=== PATIENT | male | born 1965 | race African-American/Black ===

== ENCOUNTER 2017-06-02 06:24 | Inpatient (IN) ==
[2017-06-02] MEDS ORDERED: ACETAMINOPHEN 500 MG TABLET PO STA (07:40)
[2017-06-02] MEDS ORDERED: cefTRIAXone 1,000 MG in SODIUM CHLORIDE 0.9% 100 ML IV STA (07:40)
[2017-06-02] MEDS ORDERED: SODIUM CHLORIDE 0.9% 500 ML IV STA (07:40)
[2017-06-02] MEDS ORDERED: cefTRIAXone 1,000 MG VIAL ONE (07:56)
[2017-06-02] MEDS ORDERED: ACETAMINOPHEN 500 MG TABLET ONE (07:56)
[2017-06-02 08:31] LABS: Basophils % 0.2 % (0.0-0.8); Eosinophils % 0.2 % (0.00-10.9); Hematocrit 41.2 VOL% (42.0-52.0); Hemoglobin 13.7 GM/DL (14.0-18.0); Immature Granulocytes % 0.5 %; Immature Granulocytes Absolute 0.06 #; Lymphocytes # 0.9 10*3/uL (1.4-4.0); Lymphocytes % 7.8 % (21.2-54.2); Mean Corpuscular HGB Conc 33.3 GM/DL (32-36); Mean Corpuscular Hemoglobin 29 PG (27-34); Mean Corpuscular Volume 87.3 FL (87-102); Monocytes # 0.1 10*3/uL (0.11-0.8); Monocytes % 0.5 % (1.7-12.7); Neutrophils # 10.7 10*3/uL (1.4-7.4); Neutrophils % 90.8 % (38.7-73.9); Platelet Count 145 T/CUMM (130-400); Red Blood Count 4.72 MC/CUMM (3.8-5.5); Red Cell Distribution Width 14.1 % (9.3-17.3); White Blood Count 11.7 T/CUMM (4-12)
--- NOTE | 2017-06-02 08:35 | Emergency Department Note ---
INiranjan Emily, am scribing for, and in the presence of, William Li MD 07: 46. IJen Charles R, MD, personally performed the services described in this documentation, ascribed by Sherrill Ureña in my presence, and it is both accurate and complete [id number] . Arrival - Arrival Chief Complaint: Fever Stated Complaint: fever and high blood pressure ED Nursing Triage Note: PT C/O WAKING AT 0100 THIS AM WITH FEVER, CHILLS, HEADACHE, AND PAIN TO LEFT LEG. PT TOOK 325MG ASA WHILE IN WAITING ROOM Mode of Arrival: Ambulatory Limitations: No Limitations Source: Patient Time Seen by Provider: 06/02/17 07:19 - History of Present Illness HPI Narrative: Pt is a 52 y/o male who came to ED with c/o fever that onset this morning. Pt reports having N/V with shaking chills, and body aches that has been ongoing for 4-5 days now. Pt reports having sore throat about 5 days ago but that has subsided. 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 PMHx of Afib with aspirin daily under supervision of Dr. Mc. Pt states he has not seen him in a year. Pt denies taking Tylenol or motrin. He admits to taking robitussin at 1am and aspirin at 5am. Pt is actively shaking in ED with fever of 102.5. Onset (ago): hour(s) Consistency: constant Severity: moderate Severity scale (1-10): 5 Quality: aching Allergies/Adverse Reactions: Allergies Allergy/AdvReac Type Severity Reaction Status Date / Time No Known Allergies Allergy Verified 06/02/17 07:10 Home Medications: Home Medications Medication Instructions Recorded Confirmed Type Atorvastatin [Lipitor] 40 mg PO BEDTIME 03/01/15 06/23/16 History Pantoprazole Tab [Protonix Tab] 40 mg PO DAILY 03/01/15 06/23/16 History Aspirin [Ecotrin] 81 mg PO DAILY 03/02/15 06/23/16 History Tamsulosin [Flomax] 0.4 mg PO BID 04/05/15 06/23/16 History Lisinopril/Hydrochlorothiazide 1 each PO DAILY 06/23/16 06/23/16 History [Lisinopril-Hctz 10-12.5 mg Tab] Naproxen [Naprosyn Tab] 500 mg PO BID #60 tablet 06/23/16 Rx predniSONE TAB [PredniSONE] 20 mg PO DAILY #15 tablet 06/23/16 Rx Review of System - Review of System 12 point system: reviewed and no additional remarkable complaints except as stated - Review of System Constitutional: Present: chills, fever, weakness (body aches), other (shaking) Head/Ears/Nose/Throat: Present: sore throat Respiratory: Absent: cough, respiratory distress Cardiovascular: Absent: chest pain Gastrointestinal: Present: nausea, vomiting. Absent: abdominal pain Musculoskeletal: Absent: arm pain, neck pain Skin: Absent: rash Neurological: Absent: headache Medical,Surgical,& Family Hx - Medical History Cardio: History of: Cardiac Dysrhythmia (afib), Hypertension Endocrine: History of: Dyslipidemia Genitourinary: History of: Prostate Problems Gastrointestinal: History of: GERD Musculoskeletal: History of: Back/Neck Problems (PT SEES DR. ISAAC FOR PAIN) - Surgical History Cardiac Surgeries: Sugical HX of: Cardiac Catheterization (2011) Abdominal Surgeries: Surgical HX of: Colonoscopy, EGD - Family History Family History: Reports;: Family Cancer, Family Diabetes, Family Hypertension Denies;: Family Heart Disease, Family Stroke - Social History Smoking Status: Never smoker Frequency of Alcohol Use: None Type of Drug Use: None Marital Status: Single Lives With:: Children Functional capacity: independent ambulation Exam Vital Signs: Vital Signs Temperature 102.1 F H 06/02/17 08:03 Pulse Rate 105 H 06/02/17 07:16 Respiratory Rate 18 06/02/17 07:16 Blood Pressure 140/82 06/02/17 07:16 O2 Sat by Pulse Oximetry 97 06/02/17 07:08 - General General appearance: alert, in no apparent distress - Head Head exam: Present: atraumatic, normocephalic - Eye Eye exam: Present: PERRL, EOMI - ENT ENT exam: Present: mucous membranes moist. Absent: normal oropharynx ( erythematous), mucous membranes dry - Neck Neck exam: Present: full ROM - Chest Chest inspection: Present: symmetric chest wall rise - Respiratory Respiratory exam: Present: normal lung sounds bilaterally. Absent: respiratory distress - Cardiovascular Cardiovascular exam: Present: tachycardia, irregular rhythm - Abdominal Exam Abdominal exam: Present: soft, normal bowel sounds. Absent: tenderness - Extremities Exam Extremities exam: Present: full ROM. Absent: tenderness, pedal edema - Neurological Exam Neurological exam: Present: alert, oriented X3, CN II-XII intact, other (shaking ). Absent: motor sensory deficit - Psychiatric Psychiatric exam: Present: normal affect, normal mood - Skin Skin exam: Present: warm, dry Course - Consultations Consultation #1: Hospitalist will admit patient Time: 10:25 Results - Labs CBC & BMP: 06/02/17 07:52 06/02/17 07:52 Lab Results: I have reviewed the patients labs Labs: Laboratory Tests 06/02/17 07:52 WBC 11.7 RBC 4.72 Hgb 13.7 L Hct 41.2 L Plt Count 145 Neut % (Auto) 90.8 H Lymph % (Auto) 7.8 L Preston % (Auto) 0.5 L Neut # (Auto) 10.7 H Lymph # (Auto) 0.9 L Preston # (Auto) 0.1 L Laboratory Tests 06/02/17 07:52 Total Bilirubin 1.40 H Lactate Dehydrogenase 273 H C-Reactive Protein 2.46 H Amylase 72 Lipase 201.0 Microbiology 06/02/17 07:40 Nasal Aspirate Influenza Types A,B Antigen (VIVIAN) - Final Negative for Influenza A Ag Negative for Influenza B Ag Microbiology 06/02/17 07:40 Throat Group A Streptococcus Rapid Screen - Final Negative for Grp A Strep Ag 06/02/17 07:40 Nasal Aspirate Influenza Types A,B Antigen (VIVIAN) - Final Negative for Influenza A Ag Negative for Influenza B Ag Laboratory Tests 06/02/17 09:11 Urine Color Yellow Urine Appearance Slightly hazy Urine pH 7.0 Ur Specific [place] 1.019 Urine Blood Small Urine Nitrate Negative Urine Bilirubin Negative Urine Urobilinogen 2.0 H Urine Leukocytes Moderate H Urine RBC 11 Urine WBC 66 Laboratory Tests 06/02/17 07:52 ESR Westergren 16 Laboratory Tests 06/02/17 07:52 ESR Westergren 16 - Diagnostic Findings Procedure: Chest x-ray: report reviewed by me (No acute cardiopulmonary pathology identified.) Disposition Clinical Impression: Fever, Rigors, UTI (urinary tract infection) Case discussed with: patient, patient's family Disposition: Still a Patient Condition: Stable Time of Disposition: 10:26
[2017-06-02 08:36] LABS: Bilirubin,Total 1.4 MG/DL (0.2-1.0); Calcium 8.9 MG/DL (8.5-10.1); Osmolality,Calculated 274.7 MOS/KG (273-304); Potassium 4.2 MMOL/L (3.5-5.1)
[2017-06-02 08:37] LABS: Lactic Acid 1.7 MMOL/L (0.4-2.0)
--- NOTE | 2017-06-02 08:57 | XRay Report ---
XR chest 2V Date: 06/02/2017 7:41 AM History: Shortness of breath, fever Comparison: 06/23/2016 Technique: PA and lateral chest Findings: The heart is smaller in size. The lungs and mediastinum are stable in appearance. Degenerative changes are noted. Impression: No acute cardiopulmonary pathology identified. PROCEDURE INTERPRETED AT [facility] DEPARTMENT OF RADIOLOGY Final Report Signed by: Dr. Earline Veras
[2017-06-02 09:25] LABS: Apearance,Urine Slightly Hazy (Clear); Bilirubin,Urine Negative (Negative); Blood, Urine Small mg/dL (Negative); Glucose,Urine (UA) Negative (Negative); Ketones,Urine Negative (Negative); Nitrite,Urine Negative (Negative); Protein,Urine Negative; RBC,Urine 11 /HPF (0-4); Urine Color Yellow (Yellow); Urine Specific Gravity 1.019 (1.001-1.035); WBC,Urine 66 /HPF (0-6)
[2017-06-02 09:46] LABS: Sedimentation Rate-Westergren 16 MM/HR (0-20)
[2017-06-02] MEDS ORDERED: IBUPROFEN 800 MG TABLET PO STA (10:30)
[2017-06-02] MEDS ORDERED: IBUPROFEN 800 MG TABLET ONE (10:31)
[2017-06-02 10:33] LABS: Band Neutrophils 10 % (0-10); Lymphocytes 10 % (20-55); Segmented Neutrophils 79 % (50-85); Total Cells Counted 100
[2017-06-02 10:34] LABS: Poikilocytosis 1+
--- NOTE | 2017-06-02 11:27 | Order Completion Report ---
See report scanned to EMR
--- NOTE | 2017-06-02 11:37 | Hospitalist History & Physical ---
Assessment and Plan - Time spent with patient Time spent with patient: Greater than 30 minutes (1) Fever Status: Acute Assessment and plan: Admit 06/02/17 Fever (102/103), Creatinine 1.30, decreased fluid intake -Start IV fluids - hydration, PRN tylenol, PRN pain management UTI: Continue Rocephin Flank Pain: Order KUB Prostate Problems: Chronic: continue Flomax HTN: continue Lisinopril-Hctz Dyslipidemia -continue lipitor Flu - negative Strep - Negative Urine Culture - pending results Blood culture - pending results Further recommendations with Care to follow per Dr Leonard. Current Visit: Yes (2) UTI (urinary tract infection) Status: Acute Current Visit: Yes History of Present Illness Chief complaint: fever History of present illness: Mr. Levi is a 52 year old black male w/PMHx Afib, HTN, dyslipidemia, Prostate Problems, GERD, Chronic back/neck problems presented to the ED for fever of 102 started around 1 a.m. He reports feeling "bad" for a couple of days and associated bilateral flank pain x 2 days. Noted urine is dark yellow. Reports nausea, fever, chills, body aches x1-2 days and a sore throat 5 days ago. He denies chest pain, cough, dysuria, hematuria. IN ED: CXR: nothing acute. LABS: H&H stable, WBC normal. Electrolytes WNL. total Bilirubin 1.40. LACtate Dehydrogenase 273. CRP 2.46. Urinalysis positive for UTI. STREP negative. Influenza A&B negative. VS: Temp 102-103. BP 140/82. RR 18. HR 105. Hospital medicine consulted for admission. Blood and urine cultures obtained in the ED. Rocephin initiated in ED. Start IV fluids, order KUB, continue Rocephin. SURGhx: hernia repair, left ankle fx repair, right thumb repair, back surgeries , heart catherization 2011, colonoscopy, EGD. Denies smoking, alcohol use, or drug use. 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 Home medications will be reviewed and reconciliation to follow. Home Medications Medication Instructions Recorded Confirmed Type Atorvastatin [Lipitor] 40 mg PO BEDTIME 03/01/15 06/23/16 History Pantoprazole Tab [Protonix Tab] 40 mg PO DAILY 03/01/15 06/23/16 History Aspirin [Ecotrin] 81 mg PO DAILY 03/02/15 06/23/16 History Tamsulosin [Flomax] 0.4 mg PO BID 04/05/15 06/23/16 History Lisinopril/Hydrochlorothiazide 1 each PO DAILY 06/23/16 06/23/16 History [Lisinopril-Hctz 10-12.5 mg Tab] Naproxen [Naprosyn Tab] 500 mg PO BID #60 tablet 06/23/16 Rx predniSONE TAB [PredniSONE] 20 mg PO DAILY #15 tablet 06/23/16 Rx Allergies Allergy/AdvReac Type Severity Reaction Status Date / Time No Known Allergies Allergy Verified 06/02/17 07:10 Medical,Surgical,& Family Hx - Medical History Cardio: History of: Cardiac Dysrhythmia (afib), Hypertension Endocrine: History of: Dyslipidemia Genitourinary: History of: Prostate Problems Gastrointestinal: History of: GERD Musculoskeletal: History of: Back/Neck Problems (PT SEES DR. ISAAC FOR PAIN) - Surgical History Cardiac Surgeries: Sugical HX of: Cardiac Catheterization (2011) Abdominal Surgeries: Surgical HX of: Colonoscopy, EGD - Family History Family History: Reports;: Family Cancer, Family Diabetes, Family Hypertension Denies;: Family Heart Disease, Family Stroke - Social History Smoking Status: Never smoker Frequency of Alcohol Use: None Type of Drug Use: None Marital Status: Lives With:: Spouse Functional capacity: independent ambulation 12 point system: reviewed and no additional remarkable complaints except as stated - Constitutional Constitutional: Present: chills, fever(s). Absent: frequent falls - EENT Nose, mouth and throat: Present: sore throat (about 5 days ago, resolved today) - Cardiovascular Cardiovascular: Absent: chest pain at rest, chest pain with activity, dyspnea, dyspnea on exertion, edema - Respiratory Respiratory: Absent: cough - Gastrointestinal Gastrointestinal: Present: nausea, vomiting. Absent: abdominal pain - Genitourinary Genitourinary: Present: flank pain (bilateral flank pain). Absent: dysuria, hematuria Exam - Constitutional Vitals: Period Temp Pulse Resp BP Sys/Jenkins Pulse Ox Last 24 Hr 102.1 F-103.0 F 105-105 18-18 140-140/82-82 97 General appearance: no acute distress, over weight - Head Head exam: Present: normal inspection - Eye Eye exam: Present: EOMI Pupils: Present: ADALBERTO - Neck Neck exam: Present: normal inspection. Absent: thyromegaly - Respiratory Respiratory exam: Present: clear to auscultation bilaterally. Absent: rales, rhonchi, stridor, wheezes - Cardiovascular Cardiovascular exam: Present: regular rate and rhythm - GI/Abdominal GI/Abdominal exam: Present: normal bowel sounds, soft. Absent: tenderness, rebound - Extremities Exam Extremities exam: Present: normal inspection, full ROM. Absent: edema - Neurological Exam Neurological exam: Present: alert, oriented X3, CN II-XII intact - Psychiatric Psychiatric exam: Present: normal affect, normal mood. Absent: agitated, anxious - Skin Skin exam: Present: normal color, warm, dry Results - Labs CBC & BMP: 06/02/17 07:52 06/02/17 07:52 Lab Results: I have reviewed the past 24 hour labs - Diagnostic Findings Procedure: Chest x-ray: report reviewed by me (nothing acute)
[2017-06-02] MEDS ORDERED: ONDANSETRON 4 MG/2 ML VIAL IV PRN (11:45)
[2017-06-02] MEDS ORDERED: cefTRIAXone 1,000 MG in SODIUM CHLORIDE 0.9% 100 ML IV SCH (12:00)
[2017-06-02] MEDS ORDERED: INFLUENZA VIRUS VACCINE 0.5 ML SYRINGE IM ONE (12:30)
[2017-06-02] MEDS: SODIUM CHLORIDE 0.9% 1,000 ML IV SCH ×3 (12:43→20:47)
[2017-06-02] MEDS: ASPIRIN EC 325 MG TABLET PO SCH (14:09)
[2017-06-02] MEDS: CETIRIZINE 10 MG TABLET PO SCH (14:09)
[2017-06-02] MEDS: MULTIVITAMIN (CENTRUM) TABLET PO SCH (14:09)
[2017-06-02] MEDS: PANTOPRAZOLE 40 MG TABLET PO SCH (14:10)
--- NOTE | 2017-06-02 14:37 | XRay Report ---
History is bilateral flank pain Mild air scattered in the bowel without small bowel dilatation or organomegaly seen Ovoid density left upper abdomen likely ingested pill fragment to this lies outside the renal shadow Multiple pelvic phleboliths again seen Scoliosis and degenerative changes in the lumbar spine present Impression: Nonspecific bowel gas pattern PROCEDURE INTERPRETED AT [facility] DEPARTMENT OF RADIOLOGY Final Report Signed by: Dr. Diana Huizar
--- NOTE | 2017-06-02 14:56 | CT Report ---
History is fever and flank pain Comparison 07/05/2012 There are several gallstones present. At least 8.5 cm mildly hyperdense liver mass again seen is showing enhancement pattern consistent with hemangioma. No renal calcifications or collecting system dilatation seen No enlarged retroperitoneal nodes seen. Bowel is unopacified Pelvis: There are diverticuli in the sigmoid and left colon. No free fluid or focal inflammatory changes seen. There is a moderate to severe lobular prostate enlargement degenerative change and scoliosis with straightening the curvature in the lumbar spine noted. Impression: 1. A large liver mass again seen previously shown to be hemangioma 2. Cholelithiasis 3. Diverticulosis 4. moderate to severe prostate enlargement The CT exam was performed using one or more of the following dose reduction techniques: Automated exposure control, adjustment of the mA and/or kV according to patient size, or use of iterative reconstruction technique. PROCEDURE INTERPRETED AT [facility] DEPARTMENT OF RADIOLOGY Final Report Signed by: Dr. Diana Huizar
[2017-06-02] MEDS: ATORVASTATIN 40 MG TABLET PO SCH (20:44)
[2017-06-02] MEDS: DOCUSATE SODIUM 100 MG CAPSULE PO SCH (20:44)
[2017-06-03] MEDS: SODIUM CHLORIDE 0.9% 1,000 ML IV SCH ×3 (03:46→20:40)
[2017-06-03 06:56] LABS: Basophils # 0.1 10*3/uL (0.0-0.2); Basophils % 0.2 % (0.0-0.8); Hematocrit 38.3 VOL% (42.0-52.0); Immature Granulocytes % 2.7 %; Lymphocytes # 1.3 10*3/uL (1.4-4.0); Lymphocytes % 5.8 % (21.2-54.2); Mean Corpuscular HGB Conc 33.9 GM/DL (32-36); Mean Corpuscular Hemoglobin 30 PG (27-34); Mean Corpuscular Volume 87.2 FL (87-102); Mean Platelet Volume 12.4 FL (9.6-12.0); Monocytes % 4.3 % (1.7-12.7); Neutrophils # 19.6 10*3/uL (1.4-7.4); Platelet Count 128 T/CUMM (130-400); Red Blood Count 4.39 MC/CUMM (3.8-5.5); Red Cell Distribution Width 14.4 % (9.3-17.3); White Blood Count 22.5 T/CUMM (4-12)
--- NOTE | 2017-06-03 07:12 | Urology Consultation ---
Assessment and Plan - Time spent with patient Time spent with patient: Less than 30 minutes (1) UTI (urinary tract infection) Status: Acute Assessment and plan: Agree with IV antibiotics. Consider adding gentamicin for broad-spectrum coverage as he has had a history of UTIs in the past. Maintain Hu catheter currently. Insure catheter draining well as it was kinked this morning. Current Visit: Yes Qualifiers: Urinary tract infection type: acute cystitis Hematuria presence: without hematuria Qualified Code(s): N30.00 - Acute cystitis without hematuria (2) Enlarged prostate with urinary retention Status: Acute Assessment and plan: Increase Flomax 0.4 mg twice daily Add finasteride 5 mg daily next number I discussed with him that after clinical improvement in UTI he may need intermittent catheterization. He follows with Dr. Chuck Johnson at [place] [facility]. He may need an outlet procedure, but I will defer this to Dr. Johnson. Dr. Johnson thinks he needs open simple and does not want to do this, I am happy to help do this for the patient. I reviewed his CT scan no evidence of prostatic abscess is noted. He does have a diffusely enlarged prostate with evidence at least [address] Current Visit: Yes (3) Atrial fib/flutter, transient Status: Acute Assessment and plan: History of transient atrial fibrillation on aspirin daily. He will need to be off this for any prostate surgery. It is safe to continue currently as will not operate on him acutely an infected situation. Current Visit: Yes History of Present Illness - Data of Consult Patient: new to practice Consult date: 06/03/17 - Consult Narrative History of present illness: Mr. Levi is a 52 year old male admitted with a febrile UTI. He was found to be in urinary retention with a PVR of greater than 600. He has a Hu catheter is been draining well overnight. He reports that he was having some difficulty voiding and had been on Flomax 0.4 mg nightly. He was admitted, and was able to void at all. A Hu cath was placed after him trying to void and had greater than 650 cc. He denies gross hematuria. He had a similar episode about a year ago. He has been treated for prostatitis by his urologist Dr. Chuck Johnson. He reports this had been several months ago. He denies fevers or chills currently. He has been afebrile overnight. Denies nausea vomiting. He has been having some small stools. He reports 6 stools in the last 24 hours. He reports history of hesitancy, straining with urination, and incomplete emptying. Positive for nocturia. CC: Maritza Leonard MD Urinary retention with Febrile UTI - Home Medications and Allergies Home Medications: Home Medications Medication Instructions Recorded Confirmed Type Atorvastatin [Lipitor] 40 mg PO BEDTIME 03/01/15 06/02/17 History Pantoprazole Tab [Protonix Tab] 40 mg PO DAILY 03/01/15 06/02/17 History Aspirin [Ecotrin] 325 mg PO DAILY 03/02/15 06/02/17 History Tamsulosin [Flomax] 0.4 mg PO DAILY 04/05/15 06/02/17 History Lisinopril/Hydrochlorothiazide 1 each PO DAILY 06/23/16 06/02/17 History [Lisinopril-Hctz 10-12.5 mg Tab] Cetirizine Tab [ZyrTEC Tab] 10 mg PO DAILY 06/02/17 06/02/17 History Hydrocodone/Acetaminophen [Weikert 1 each PO Q4H PRN 06/02/17 06/02/17 History 10-325 Tablet] Multivitamin (Centrum) [Centrum 1 tablet PO DAILY 06/02/17 06/02/17 History Tab] Allergies/Adverse Reactions: Allergies Allergy/AdvReac Type Severity Reaction Status Date / Time No Known Allergies Allergy Verified 06/02/17 07:10 Medical,Surgical,& Family Hx - Medical History Cardio: History of: Cardiac Dysrhythmia (afib), Hypertension Neurology: History of: Migraine, Vertigo Endocrine: History of: Dyslipidemia Rheumatology: History of;: Rheumatoid Arthritis Genitourinary: History of: Prostate Problems Gastrointestinal: History of: GERD Musculoskeletal: History of: Back/Neck Problems (PT SEES DR. ISAAC FOR PAIN) - Surgical History Cardiac Surgeries: Sugical HX of: Cardiac Catheterization (2011) Abdominal Surgeries: Surgical HX of: Colonoscopy (2006), EGD (2006) - Family History Family History: Reports;: Family Cancer, Family Diabetes, Family Hypertension Denies;: Family Heart Disease, Family Stroke - Social History Smoking Status: Never smoker Frequency of Alcohol Use: None Type of Drug Use: None 12 point system: reviewed and no additional remarkable complaints except as stated - Genitourinary Genitourinary: Present: difficulty urinating, nocturia. Absent: flank pain, hematuria, scrotal swelling, testicular mass, testicular pain Exam - Constitutional Vitals: Period Temp Pulse Resp BP Sys/Jenkins Pulse Ox Last 24 Hr 97.4 F-103.0 F 84-105 18-20 96-140/58-82 94-98 General appearance: no acute distress - Head Head exam: Present: normocephalic - Eye Eye exam: Absent: scleral icterus - ENT ENT exam: Present: normal oropharynx - Neck Neck exam: Present: normal inspection - Respiratory Respiratory exam: Present: clear to auscultation bilaterally. Absent: stridor, wheezes - Cardiovascular Cardiovascular exam: Present: regular rate and rhythm. Absent: JVD - GI/Abdominal GI/Abdominal exam: Present: distended. Absent: tenderness, rebound - Genitourinary Genitourinary: scrotum without lesions, cysts, edema or rash, penis with no lesions or discharge, diffusely enlarged prostate without tenderness (Greater than 60 g prostate clinically on exam), other (Hu catheter kinked cath secure. I released this and immediate drainage of urine with his abdomen decreased in distention.) - Extremities Exam Extremities exam: Present: normal inspection, normal capillary refill - Back Exam Back exam: Absent: CVA tenderness (L), CVA tenderness (R) - Neurological Exam Neurological exam: Present: alert, oriented X3 - Psychiatric Psychiatric exam: Present: normal affect, normal mood - Skin Skin exam: Present: warm, dry Results - Labs CBC & BMP: 06/03/17 05:45 06/02/17 07:52 Lab Results: I have reviewed the past 24 hour labs - Diagnostic Findings Procedure: CT Abdomen and Pelvis: image reviewed by me Specialty Discharge - Follow Up or Referrals Follow up with: Chuck Johnson MD [Physician] - 1 Week (within 1 week after discharge)
[2017-06-03 07:27] LABS: Acanthocytes Few; Band Neutrophils 9 % (0-10); Burr Cells Slight; Hypochromasia 1+; Lymphocytes 5 % (20-55); Segmented Neutrophils 84 % (50-85); Total Cells Counted 100
[2017-06-03 07:28] LABS: Platelet Estimate Adequate
[2017-06-03 07:43] LABS: Calcium 8.5 MG/DL (8.5-10.1); Magnesium 1.9 MG/DL (1.8-2.4); Osmolality,Calculated 282.3 MOS/KG (273-304); Potassium 3.9 MMOL/L (3.5-5.1)
[2017-06-03] MEDS: MULTIVITAMIN (CENTRUM) TABLET PO SCH (09:24)
[2017-06-03] MEDS: PANTOPRAZOLE 40 MG TABLET PO SCH (09:24)
[2017-06-03] MEDS: TAMSULOSIN 0.4 MG CAPSULE PO SCH (09:24)
[2017-06-03] MEDS: ASPIRIN EC 325 MG TABLET PO SCH (09:24)
[2017-06-03] MEDS: DOCUSATE SODIUM 100 MG CAPSULE PO SCH ×2 (09:24→20:40)
[2017-06-03] MEDS: CETIRIZINE 10 MG TABLET PO SCH (09:25)
[2017-06-03] MEDS: GENTAMICIN INJ 200 MG in SODIUM CHLORIDE 0.9% 100 ML IV SCH ×2 (12:53→20:40)
--- NOTE | 2017-06-03 13:28 | Hospitalist Progress Note ---
Assessment and Plan (1) Pyelonephritis Status: Acute Assessment and plan: Continue IV antibiotics Current Visit: Yes (2) Gram-negative bacteremia Status: Acute Current Visit: Yes (3) UTI (urinary tract infection) Status: Acute Current Visit: Yes Qualifiers: Urinary tract infection type: acute pyelonephritis Qualified Code(s): N10 - Acute pyelonephritis (4) Enlarged prostate with urinary retention Status: Acute Assessment and plan: Urology consult reviewed. Continue Hu catheter. Current Visit: Yes Hospitalist: Subjective Interval history: Patient seen and examined. No acute events overnight. Case discussed with nursing staff. Labs reviewed. Blood cultures show bacteremia with gram- negative rods 2 out of 2. We will add gentamicin. Urology consult reviewed. Exam - Constitutional Vitals: Period Temp Pulse Resp BP Sys/Jenkins Pulse Ox Last 24 Hr 97.4 F-99.0 F 84-101 18-22 102-140/56-78 94-96 Exam: Constitutional System: No distress. No tremulousness. Head: Normocephalic, atraumatic. Ears, Nose and Throat System: No pain or tenderness. No epistaxis or discharge Eyes System: Pupils equal, round, and reactive. Extraocular muscles intact. Neck: Supple, without adenopathy, No jugular venous distention. No thyromegaly, neck mass, or prior surgery apparent. Respiratory System: Chest clear to auscultation. Cardiovascular System: Heart with regular rate and rhythm. No murmur. GI System: Abdomen soft, nontender. Normo active bowel sounds present. Musculoskeletal System: limbs with no pedal edema. Full distal pulses. Normal capillary refill. Neurological System: No discernable sensory deficit. No aphasia Psychiatric System: Conversation is rational Results - Labs CBC & BMP: 06/03/17 05:45 06/03/17 05:45 Lab Results: I have reviewed the past 24 hour labs - Diagnostic Findings Procedure: CT Abdomen and Pelvis: image reviewed by me, report reviewed by me Quality Measures - Stroke Symptom Onset Unknown: No Specialty Discharge - Follow Up or Referrals Follow up with: Chuck Johnson MD [Physician] - 1 Week (within 1 week after discharge)
[2017-06-03] MEDS: ACETAMINOPHEN 325 MG TABLET PO PRN (16:01)
[2017-06-03] MEDS: IBUPROFEN 600 MG TABLET PO PRN (17:24)
[2017-06-03] MEDS: ZALEPLON 5 MG CAPSULE PO PRN (20:40)
[2017-06-03] MEDS: ATORVASTATIN 40 MG TABLET PO SCH (20:40)
[2017-06-04] MEDS: GENTAMICIN INJ 200 MG in SODIUM CHLORIDE 0.9% 100 ML IV SCH (04:28)
[2017-06-04] MEDS: SODIUM CHLORIDE 0.9% 1,000 ML IV SCH (05:42)
[2017-06-04 06:08] LABS: Basophils % 0.3 % (0.0-0.8); Eosinophils # 0.1 10*3/uL (0.0-0.87); Eosinophils % 0.7 % (0.00-10.9); Hematocrit 34.1 VOL% (42.0-52.0); Hemoglobin 11.5 GM/DL (14.0-18.0); Immature Granulocytes % 0.4 %; Immature Granulocytes Absolute 0.06 #; Lymphocytes # 2.4 10*3/uL (1.4-4.0); Lymphocytes % 17.1 % (21.2-54.2); Mean Corpuscular HGB Conc 33.7 GM/DL (32-36); Mean Corpuscular Hemoglobin 29 PG (27-34); Mean Platelet Volume 12.1 FL (9.6-12.0); Monocytes # 0.8 10*3/uL (0.11-0.8); Monocytes % 5.4 % (1.7-12.7); Neutrophils # 10.6 10*3/uL (1.4-7.4); Neutrophils % 76.1 % (38.7-73.9); Platelet Count 119 T/CUMM (130-400); Red Blood Count 3.92 MC/CUMM (3.8-5.5); Red Cell Distribution Width 14.6 % (9.3-17.3); White Blood Count 13.9 T/CUMM (4-12)
[2017-06-04 06:46] LABS: Albumin 2.6 G/DL (3.4-5.0); Bilirubin,Total 0.8 MG/DL (0.2-1.0); Calcium 8.3 MG/DL (8.5-10.1); Osmolality,Calculated 283.1 MOS/KG (273-304); Potassium 3.8 MMOL/L (3.5-5.1); Total Protein 5.3 G/DL (6.4-8.3)
--- NOTE | 2017-06-04 07:17 | Urology Progress Note ---
Assessment and Plan - Time spent with patient Time spent with patient: Less than 30 minutes (1) UTI (urinary tract infection) Status: Acute Assessment and plan: Agree with IV antibiotics (broad-spectrum coverage). Maintain Merida catheter currently. Insure catheter draining well--> would leave this in place. Can be discharged with merida and have voiding trial with his Urologist (given + Bl Cxs). He is going to need an extended course of abxs--> d/w pt that he would need to be clear of infection prior to Dr Johnson (or another Urologist) performing any time of outlet procedure. Current Visit: Yes Qualifiers: Urinary tract infection type: acute pyelonephritis Qualified Code(s): N10 - Acute pyelonephritis (2) Enlarged prostate with urinary retention Status: Acute Assessment and plan: Continue Flomax 0.4 mg twice daily and finasteride 5 mg daily. I discussed with him that after clinical improvement in UTI he may need intermittent catheterization. He follows with Dr. Chuck Johnson at [facility]. He may need an outlet procedure, but I will defer this to Dr. Johnson. His infection and bacteremia will have to be cleared completely. Would D/C home with merida and close f/u with his Urologist Current Visit: Yes (3) Atrial fib/flutter, transient Status: Acute Assessment and plan: History of transient atrial fibrillation on aspirin daily. He will need to be off this for any prostate surgery. It is safe to continue currently as will not operate on him acutely an infected situation. Current Visit: Yes Urology - PN: Subj Interval history: Feels some better. Some lower abd discomfort from merida. + flatus, + BM, less weakness. Bl Cxs x 2 + for gram neg rods Ur Cx- initially no growth, but likely the source of infection Exam - Constitutional Vitals: Period Temp Pulse Resp BP Sys/Jenkins Pulse Ox Last 24 Hr 97.7 F-100.3 F 71-92 18-22 108-140/56-78 94-97 General appearance: no acute distress - Head Head exam: Present: normal inspection, normocephalic - Eye Eye exam: Present: EOMI - ENT ENT exam: Present: normal oropharynx - Neck Neck exam: Present: normal inspection. Absent: lymphadenopathy - Respiratory Respiratory exam: Present: clear to auscultation bilaterally. Absent: stridor - Cardiovascular Cardiovascular exam: Present: regular rate and rhythm. Absent: JVD - GI/Abdominal GI/Abdominal exam: Present: normal bowel sounds, soft. Absent: tenderness, rebound - Genitourinary Genitourinary: scrotum without lesions, cysts, edema or rash, penis with no lesions or discharge, other (merida in place with yellow urine, secured left thigh) - Extremities Exam Extremities exam: Present: normal capillary refill - Back Exam Back exam: Absent: CVA tenderness (L), CVA tenderness (R) - Neurological Exam Neurological exam: Present: oriented X3. Absent: alert - Psychiatric Psychiatric exam: Present: normal affect, normal mood - Skin Skin exam: Present: normal color, warm, dry Results - Labs CBC & BMP: 06/04/17 05:22 06/04/17 05:22 Lab Results: I have reviewed the past 24 hour labs Labs: Bl Cxs x 2 w/ gram Neg rods--> Speciation and sensitivities pending Ur Cx- no growth prelim- possible that he had abx prior to ur cx (false negative ) - Diagnostic Findings Procedure: CT Abdomen and Pelvis: image reviewed by me Specialty Discharge - Follow Up or Referrals Follow up with: Chuck Johnson MD [Physician] - 1 Week (within 1 week after discharge)
[2017-06-04] MEDS: TAMSULOSIN 0.4 MG CAPSULE PO SCH ×2 (09:43→21:21)
[2017-06-04] MEDS: DOCUSATE SODIUM 100 MG CAPSULE PO SCH ×2 (09:43→21:20)
[2017-06-04] MEDS: MULTIVITAMIN (CENTRUM) TABLET PO SCH (09:43)
[2017-06-04] MEDS: ASPIRIN EC 325 MG TABLET PO SCH (09:43)
[2017-06-04] MEDS: CETIRIZINE 10 MG TABLET PO SCH (09:45)
[2017-06-04] MEDS: PANTOPRAZOLE 40 MG TABLET PO SCH (09:46)
--- NOTE | 2017-06-04 10:30 | Hospitalist Progress Note ---
Assessment and Plan (1) Pyelonephritis Status: Acute Assessment and plan: Continue IV antibiotics Current Visit: Yes (2) Gram-negative bacteremia Status: Acute Assessment and plan: Follow-up final cultures. Continue Rocephin. The patient received 3 doses of gentamicin. Current Visit: Yes (3) UTI (urinary tract infection) Status: Acute Assessment and plan: Follow-up final cultures Current Visit: Yes Qualifiers: Urinary tract infection type: acute pyelonephritis Qualified Code(s): N10 - Acute pyelonephritis (4) Enlarged prostate with urinary retention Status: Acute Assessment and plan: Urology consult reviewed. Continue Hu catheter. Increased Flomax to 0.4 twice daily and added Proscar 5 mg daily. Current Visit: Yes Hospitalist: Subjective Interval history: Patient seen and examined. No acute events overnight. Case discussed with nursing staff. Labs reviewed. He reports feeling better. His white blood cell count is down. Urology notes reviewed. Will plan for discharge with Hu catheter once cultures are final. Exam - Constitutional Vitals: Period Temp Pulse Resp BP Sys/Jenkins Pulse Ox Last 24 Hr 97.7 F-100.3 F 70-92 18-22 108-134/65-85 94-97 Exam: Constitutional System: No distress. No tremulousness. Head: Normocephalic, atraumatic. Ears, Nose and Throat System: No pain or tenderness. No epistaxis or discharge Eyes System: Pupils equal, round, and reactive. Extraocular muscles intact. Neck: Supple, without adenopathy, No jugular venous distention. Respiratory System: Chest clear to auscultation. Cardiovascular System: Heart with regular rate and rhythm. No murmur. GI System: Abdomen soft, nontender. Normo active bowel sounds present. Hu catheter in place Musculoskeletal System: limbs with no pedal edema. Full distal pulses. Normal capillary refill. Neurological System: No discernable sensory deficit. No aphasia Psychiatric System: Conversation is rational Results - Labs CBC & BMP: 06/04/17 05:22 06/04/17 05:22 Lab Results: I have reviewed the past 24 hour labs Quality Measures - Stroke Symptom Onset Unknown: No Specialty Discharge - Follow Up or Referrals Follow up with: Chuck Johnson MD [Physician] - 1 Week (within 1 week after discharge)
[2017-06-04] MEDS: FINASTERIDE 5 MG TABLET PO SCH (10:52)
[2017-06-04] MEDS: ATORVASTATIN 40 MG TABLET PO SCH (21:20)
[2017-06-04] MEDS: ZALEPLON 5 MG CAPSULE PO PRN (21:20)
[2017-06-04] MEDS: ACETAMINOPHEN 325 MG TABLET PO PRN (22:07)
[2017-06-04] MEDS ORDERED: hydrALAZINE 20 MG/1 ML VIAL IV PRN (22:21)
[2017-06-05 03:34] LABS: Basophils % 0.5 % (0.0-0.8); Eosinophils # 0.1 10*3/uL (0.0-0.87); Eosinophils % 1.6 % (0.00-10.9); Hematocrit 33.6 VOL% (42.0-52.0); Hemoglobin 11.6 GM/DL (14.0-18.0); Immature Granulocytes % 0.4 %; Immature Granulocytes Absolute 0.03 #; Lymphocytes # 2.2 10*3/uL (1.4-4.0); Lymphocytes % 27.1 % (21.2-54.2); Mean Corpuscular HGB Conc 34.5 GM/DL (32-36); Mean Corpuscular Hemoglobin 29 PG (27-34); Mean Corpuscular Volume 85.3 FL (87-102); Mean Platelet Volume 11.5 FL (9.6-12.0); Monocytes # 0.5 10*3/uL (0.11-0.8); Monocytes % 6.2 % (1.7-12.7); Neutrophils # 5.3 10*3/uL (1.4-7.4); Neutrophils % 64.2 % (38.7-73.9); Platelet Count 128 T/CUMM (130-400); Red Blood Count 3.94 MC/CUMM (3.8-5.5); Red Cell Distribution Width 14.3 % (9.3-17.3); White Blood Count 8.2 T/CUMM (4-12)
[2017-06-05 04:03] LABS: Calcium 8.3 MG/DL (8.5-10.1); Magnesium 1.9 MG/DL (1.8-2.4); Potassium 3.8 MMOL/L (3.5-5.1)
[2017-06-05] MEDS: IBUPROFEN 600 MG TABLET PO PRN (05:20)
--- NOTE | 2017-06-05 07:44 | Urology Progress Note ---
Assessment and Plan (1) UTI (urinary tract infection) Status: Acute Assessment and plan: Agree with IV antibiotics (broad-spectrum coverage). Maintain Merida catheter currently. Insure catheter draining well--> would leave this in place. Can be discharged with merida and have voiding trial with his Urologist (given + Bl Cxs). He is going to need an extended course of abxs--> d/w pt that he would need to be clear of infection prior to Dr Johnson (or another Urologist) performing any time of outlet procedure. I d/w pt that he will need to make sure he has f/u with Dr Johnson Current Visit: Yes Qualifiers: Urinary tract infection type: acute pyelonephritis Qualified Code(s): N10 - Acute pyelonephritis (2) Enlarged prostate with urinary retention Status: Acute Assessment and plan: Continue Flomax 0.4 mg twice daily and finasteride 5 mg daily. I discussed with him that after clinical improvement in UTI he may need intermittent catheterization. He follows with Dr. Chuck Johnson at [facility]. He may need an outlet procedure, but I will defer this to Dr. Johnson. His infection and bacteremia will have to be cleared completely. Would D/C home with merida and close f/u with his Urologist Current Visit: Yes (3) Atrial fib/flutter, transient Status: Acute Assessment and plan: History of transient atrial fibrillation on aspirin daily. He will need to be off this for any prostate surgery. It is safe to continue currently as will not operate on him acutely an infected situation. I will not follow daily--> please call with questions or concerns. If he is to stay for several days for IV abxs, then I will plan for voiding trial at day 5 of hospitalization. He is willing to perform intermittent self catheterization if he fails voiding trial. However, I d/w pt that we would leave it in if he is going home. That way he doesn't end up in [facility] w/o close Urologic f/u. Current Visit: Yes Urology - PN: Subj Interval history: Feeling better overall. Some intermittent gross hematuria. One low grade temp elevation last evening. Been up in chair yesterday. He understands that he will likely need prolonged abx tx due to bacteremia. Exam - Constitutional Vitals: Period Temp Pulse Resp BP Sys/Jenkins Pulse Ox Last 24 Hr 98 F-99.0 F 67-70 18-22 124-155/68-105 95-98 General appearance: no acute distress - Head Head exam: Present: normal inspection, normocephalic - Eye Eye exam: Present: EOMI - ENT ENT exam: Present: normal oropharynx - Neck Neck exam: Present: normal inspection. Absent: lymphadenopathy - Respiratory Respiratory exam: Present: clear to auscultation bilaterally. Absent: stridor - Cardiovascular Cardiovascular exam: Present: regular rate and rhythm. Absent: JVD - GI/Abdominal GI/Abdominal exam: Present: soft, other (nonpalpable bladder). Absent: tenderness, rebound - Genitourinary Genitourinary: scrotum without lesions, cysts, edema or rash, penis with no lesions or discharge, other (merida secured left thigh- clear urine this am in tubing) - Extremities Exam Extremities exam: Present: normal inspection, normal capillary refill - Back Exam Back exam: Absent: CVA tenderness (L), CVA tenderness (R) - Neurological Exam Neurological exam: Present: alert, oriented X3 - Psychiatric Psychiatric exam: Present: normal affect, normal mood - Skin Skin exam: Present: normal color, dry Results - Labs CBC & BMP: 06/05/17 03:27 06/05/17 03:27 Lab Results: I have reviewed the past 24 hour labs - Diagnostic Findings Procedure: CT Abdomen and Pelvis: image reviewed by me Specialty Discharge - Follow Up or Referrals Follow up with: Chuck Johnson MD [Physician] - 1 Week (within 1 week after discharge)
[2017-06-05] MEDS ORDERED: LISINOPRIL/HCTZ 10-12.5 MG TABLET PO SCH (09:00)
[2017-06-05] MEDS: ASPIRIN EC 325 MG TABLET PO SCH (10:17)
[2017-06-05] MEDS: DOCUSATE SODIUM 100 MG CAPSULE PO SCH (10:18)
[2017-06-05] MEDS: FINASTERIDE 5 MG TABLET PO SCH (10:18)
[2017-06-05] MEDS: TAMSULOSIN 0.4 MG CAPSULE PO SCH (10:18)
[2017-06-05] MEDS: CETIRIZINE 10 MG TABLET PO SCH (10:18)
[2017-06-05] MEDS: MULTIVITAMIN (CENTRUM) TABLET PO SCH (10:18)
[2017-06-05] MEDS: PANTOPRAZOLE 40 MG TABLET PO SCH (10:18)
--- NOTE | 2017-06-05 11:11 | Discharge Summary ---
Hospital Course - Hospital Course Hospital Course: Mr. Levi is a 52-year-old -Citizen Of [place] male that was admitted to the hospital with bilateral flank pain and fever and diagnosed with pyelonephritis. He is found to have evidence of enlarged prostate with bladder outlet obstruction that has required Hu catheter insertion. His blood cultures were both positive for gram-negative rods that were later identified as Morganella morganii. He was treated with IV Rocephin and gentamicin during the course of the hospitalization. His white blood cell count has returned to normal. He has been afebrile and his pain is improved. He is being discharged home today with a prescription for ciprofloxacin 500 mg by mouth twice daily for 10 more days for a total of 14 days of antibiotic coverage for his gram- negative bacteremia. He was also given new prescription for Flomax and Proscar. He will follow-up with his primary urologist Dr. Johnson in 1 week. He is discharged with a Hu catheter in place. - Time spent with patient Time with patient DS: Greater than 30 minutes (Total discharge time for this patient, including [id number] time, clinical documentation, medication reconciliation, and discharge planning was 37 minutes.) Diagnosis - Discharge Diagnosis (1) Pyelonephritis Status: Acute (2) Gram-negative bacteremia Status: Acute (3) UTI (urinary tract infection) Status: Acute (4) Enlarged prostate with urinary retention Status: Acute Specialty Discharge - Follow Up or Referrals Follow up with: Chuck Johnson MD [Physician] - 1 Week (within 1 week after discharge) Discharge Plan - Discharge Data Disposition: Disch To Home/Self Care Condition at Discharge: Stable Discharge Diet: advance to your usual diet Activity: resume usual activities as tolerated Hygiene: no restrictions Weight Bearing at Discharge: full weight bearing Driving: no restrictions Contact your physician if you experience:: fever over 101 - Discharge Medications New Finasteride [Proscar] 5 mg PO DAILY #30 tablet Tamsulosin [Flomax] 0.4 mg PO BID #60 capsule Ciprofloxacin Tab [Cipro Tab] 500 mg PO BID #20 tablet Continue Atorvastatin [Lipitor] 40 mg PO BEDTIME Pantoprazole Tab [Protonix Tab] 40 mg PO DAILY Aspirin [Ecotrin] 325 mg PO DAILY Lisinopril/Hydrochlorothiazide [Lisinopril-Hctz 10-12.5 mg Tab] 1 each PO DAILY Cetirizine Tab [ZyrTEC Tab] 10 mg PO DAILY Multivitamin (Centrum) [Centrum Tab] 1 tablet PO DAILY Hydrocodone/Acetaminophen [[place] 10-325 Tablet] 1 each PO Q4H PRN #20 tablet PRN Reason: Pain Discontinued Tamsulosin [Flomax] 0.4 mg PO DAILY - Follow Up or Referral Follow Up: Chuck Johnson MD [Physician] - 1 Week (within 1 week after discharge) - Forms/Instructions Exam - Constitutional Vitals: Period Temp Pulse Resp BP Sys/Jenkins Pulse Ox Last 24 Hr 97.3 F-99.0 F 63-73 18-22 124-155/68-105 95-98 Discharge Results Labs on day of discharge: Labs from last 24 hours 06/05/17 06/05/17 03:27 03:27 WBC 8.2 D RBC 3.94 Hgb 11.6 L Hct 33.6 L MCV 85.3 L MCH 29 MCHC 34.5 RDW 14.3 Plt Count 128 L MPV 11.5 Neut % (Auto) 64.2 Lymph % (Auto) 27.1 [place] % (Auto) 6.2 Eos % (Auto) 1.6 Baso % (Auto) 0.5 Neut # (Auto) 5.3 Lymph # (Auto) 2.2 [place] # (Auto) 0.5 Eos # (Auto) 0.1 Baso # (Auto) 0.0 Immature Gran % 0.4 Nucleated RBC % 0.0 Immature Gran # 0.03 Nucleated RBCs # 0.00 Immature Plt Fraction 0.0 Sodium 143 Potassium 3.8 Chloride 110 H Carbon Dioxide 26 Anion Gap 10.8 BUN 8 Creatinine 0.90 GFR Calculation 149 BUN/Creatinine Ratio 8.00 Glucose 97 Calculated Osmolality 282.0 Calcium 8.3 L Magnesium 1.9 DS: Provider Date of admission: 06/02/17 10:28 Primary care physician: . No PCP Attending physician on admission: Maritza Leonard MD Consults: 06/02/17 16:44 Consult to Physician [CONS] Routine Comment: Prostatic enlargement, flank pain, fever, pyelo Consulting Provider: Siddharth Wallace Person Notified: Date Notified: 06/02/17 Time Notified: 17:10 Consult Notification Comment: per cell phone will see in am 06/02/17 17:06 Consult to Physician [CONS] Routine Comment: Consulting Provider: 06/03/17 10:51 Consult to Pharmacy [CONS] Routine Reason for Pharmacy Consult: Dose/Manage Gentamicin Discharging clinician: Maritza Leonard MD Expected date of discharge: 06/05/17
[2017-06-05 11:53] VITALS: BP 143/87
--- NOTE | 2017-06-06 10:07 | Physician Query Form ---
CLICK EDIT DOCUMENT TO SELECT QUERY ANSWER --> OK --> SIGN Sigrid Dowell RN Clinical Thoracic Surgeon W) [phone] (f) [phone] [email or web address] PROVIDERS: Make your selection(s) from the choices in EACH section by typing an "x" and enter comments in the comment section. Please use your independent medical judgment in providing your response. This request does not imply that any particular answer is desired or expected. CLINICAL INDICATORS: (Providers should not edit this section) Pt. admitted with acute pyelonephritis. Xbjb=793.5, Cjyax=156, WBC=22.5. Pt. treated with IV Gentamicin and Rocephin. Pt. has documented gram-negative bacteremia. Please clarify which, if any, of the following is the etiology of the above symptoms and treatment rendered: (X ) Sepsis due to a localized infection, please specify infection: Secondary to urinary tract infection and pyelonephritis with enlarged prostate and bladder outlet obstruction. ( ) Severe Sepsis (sepsis with acute organ failure) - Please specify type acute organ failure: ( ) Septic Shock (severe sepsis with hypotension) ( ) SIRS of noninfectious origin ( ) Sepsis due to a device, implant or graft, please specify: ( ) Localized infection only, without systemic illness, please specify infection : ( ) Bacteremia (abnormal lab finding only, does not indicate systemic illness) ( ) Other condition, please specify: ( ) Clinically unable to determine Criteria for Sepsis (SIRS due to an infection) should be based on 2 or more of the following being present: Temperature > 101F or < 96.8F WBC > 12,000 or < 4,000, or > 10% bands Tachycardia HR > 90 beats/minute Tachypnea RR > 20 breaths/minute or PaCO2 > 32mmHg Lactate level > 2.0 mmol/L (>4 is equivalent to severe sepsis) Altered Mental Status Mottling of skin or prolonged capillary refill Non-diabetic hyperglycemia (blood sugar >120 mg/dl) Other evidence of acute organ failure associated with sepsis ( severe sepsis) COMMENTS: PLEASE ALSO DOCUMENT RESPONSE IN PROGRESS NOTES AND/OR DISCHARGE SUMMARY Use of terms such as suspected, likely, or probable (associated with a specific diagnosis that is being evaluated, monitored, or treated as if it exists) are acceptable and can be restated in the discharge summary if not ruled out. MTDD
== END 2017-06-05 15:15 | disposition home or self-care (01) | DRG 872 ==
LOC: N.ED 06:24 → N.EDINP 10:28 → N.2E 12:06
PROVIDERS: ADMIT Family Medicine; ATTEND Family Medicine

== ENCOUNTER 2017-11-10 22:15 | Observation (INO) ==
[2017-11-11] MEDS ORDERED: SODIUM CHLORIDE 0.9% 1,000 ML IV STA (02:25)
[2017-11-11 03:02] LABS: Basophils # 0.1 10*3/uL (0.0-0.2); Eosinophils # 0.6 10*3/uL (0.0-0.87); Eosinophils % 8.9 % (0.00-10.9); Hematocrit 41.6 VOL% (42.0-52.0); Hemoglobin 13.9 GM/DL (14.0-18.0); Immature Granulocytes % 0.2 %; Immature Granulocytes Absolute 0.01 #; Lymphocytes # 3.4 10*3/uL (1.4-4.0); Mean Corpuscular HGB Conc 33.4 GM/DL (32-36); Mean Corpuscular Hemoglobin 30 PG (27-34); Mean Corpuscular Volume 89.1 FL (87-102); Mean Platelet Volume 11.5 FL (9.6-12.0); Monocytes # 0.3 10*3/uL (0.11-0.8); Monocytes % 5.4 % (1.7-12.7); Neutrophils # 1.9 10*3/uL (1.4-7.4); Neutrophils % 30.5 % (38.7-73.9); Platelet Count 168 T/CUMM (130-400); Red Blood Count 4.67 MC/CUMM (3.8-5.5); Red Cell Distribution Width 13.8 % (9.3-17.3); White Blood Count 6.3 T/CUMM (4-12)
[2017-11-11 03:12] LABS: PT Patient Result 10.6 SECS
[2017-11-11 03:18] LABS: Apearance,Urine CLEAR (Clear); Bilirubin,Urine Negative (Negative); Blood, Urine Negative (Negative); Glucose,Urine (UA) Negative (Negative); Ketones,Urine Negative (Negative); Mucus,Urine Occasional /LPF (Occasional); Nitrite,Urine Negative (Negative); Protein,Urine Negative; Squamous Epithelial Cell,Urine Occasional /HPF (0-10); Urine Color Yellow (Yellow); Urine Specific Gravity 1.011 (1.001-1.035); Urine Urobilinogen < 2.0 EU/DL (0.2-1.0)
[2017-11-11 03:27] LABS: Burr Cells Few; Eosinophils 8 % (0-10); Lymphocytes 59 % (20-55); Platelet Estimate Normal; Segmented Neutrophils 30 % (50-85); Total Cells Counted 100
[2017-11-11 03:32] LABS: Calcium 8.9 MG/DL (8.5-10.1); Osmolality,Calculated 278.5 MOS/KG (273-304); Potassium 4.1 MMOL/L (3.5-5.1)
[2017-11-11] MEDS ORDERED: ONDANSETRON 4 MG/2 ML VIAL IV PRN (06:36)
[2017-11-11 07:09] LABS: Bilirubin,Direct 0.16 MG/DL (0.0-0.20); Bilirubin,Indirect 0.7 MG/DL (0.0-1.0); Bilirubin,Total 0.9 MG/DL (0.2-1.0); Total Protein 6.9 G/DL (6.4-8.3)
[2017-11-11] MEDS ORDERED: PANTOPRAZOLE 40 MG TABLET PO ONE (07:55)
[2017-11-11] MEDS: SODIUM CHLORIDE 0.9% 1,000 ML IV SCH ×2 (08:00→20:52)
[2017-11-11] MEDS: PANTOPRAZOLE 40 MG TABLET PO SCH ×2 (08:30→10:49)
[2017-11-11] MEDS: FLUTICASONE 50 MCG NASAL SPRAY 16 GM BOTTLE BOTH NARES SCH (09:55)
[2017-11-11] MEDS: TAMSULOSIN 0.4 MG CAPSULE PO SCH ×2 (10:49→20:52)
[2017-11-11] MEDS: CETIRIZINE 10 MG TABLET PO SCH (10:49)
[2017-11-11] MEDS: LISINOPRIL/HCTZ 10-12.5 MG TABLET PO SCH (10:49)
[2017-11-11] MEDS: FINASTERIDE 5 MG TABLET PO SCH (10:49)
[2017-11-11 11:14] LABS: Hematocrit 41.8 VOL% (42.0-52.0); Hemoglobin 13.7 GM/DL (14.0-18.0)
[2017-11-11] MEDS ORDERED: BISACODYL 5 MG TABLET PO ONE (12:00)
[2017-11-11] MEDS ORDERED: POLYETHYLENE GLYCOL 3350/ELECTROLYTES 4,000 ML BOTTLE PO ONE (15:00)
[2017-11-11] MEDS: ATORVASTATIN 40 MG TABLET PO SCH (20:52)
[2017-11-11 21:10] LABS: Hemoglobin 13.8 GM/DL (14.0-18.0)
[2017-11-12] MEDS: SODIUM CHLORIDE 0.9% 1,000 ML IV SCH ×3 (01:57→16:02)
[2017-11-12 07:08] LABS: Basophils # 0.1 10*3/uL (0.0-0.2); Basophils % 0.9 % (0.0-0.8); Eosinophils # 0.3 10*3/uL (0.0-0.87); Eosinophils % 5.9 % (0.00-10.9); Hematocrit 42.2 VOL% (42.0-52.0); Hemoglobin 13.8 GM/DL (14.0-18.0); Immature Granulocytes % 0.2 %; Immature Granulocytes Absolute 0.01 #; Lymphocytes # 2.2 10*3/uL (1.4-4.0); Lymphocytes % 39.7 % (21.2-54.2); Mean Corpuscular HGB Conc 32.7 GM/DL (32-36); Mean Corpuscular Hemoglobin 30 PG (27-34); Mean Corpuscular Volume 90.2 FL (87-102); Mean Platelet Volume 11.8 FL (9.6-12.0); Monocytes # 0.3 10*3/uL (0.11-0.8); Monocytes % 4.8 % (1.7-12.7); Neutrophils # 2.6 10*3/uL (1.4-7.4); Neutrophils % 48.5 % (38.7-73.9); Platelet Count 162 T/CUMM (130-400); Red Blood Count 4.68 MC/CUMM (3.8-5.5); White Blood Count 5.4 T/CUMM (4-12)
[2017-11-12 07:28] LABS: Osmolality,Calculated 278.4 MOS/KG (273-304)
[2017-11-12] MEDS: LISINOPRIL/HCTZ 10-12.5 MG TABLET PO SCH (09:47)
[2017-11-12] MEDS: FLUTICASONE 50 MCG NASAL SPRAY 16 GM BOTTLE BOTH NARES SCH (09:47)
[2017-11-12] MEDS: TAMSULOSIN 0.4 MG CAPSULE PO SCH ×2 (09:47→21:48)
[2017-11-12] MEDS: FINASTERIDE 5 MG TABLET PO SCH (09:48)
[2017-11-12] MEDS: PANTOPRAZOLE 40 MG TABLET PO SCH ×2 (09:48)
[2017-11-12] MEDS: CETIRIZINE 10 MG TABLET PO SCH (09:48)
[2017-11-12 11:32] LABS: Hematocrit 40.7 VOL% (42.0-52.0); Hemoglobin 13.6 GM/DL (14.0-18.0)
[2017-11-12] MEDS ORDERED: PROPOFOL 200 MG/20 ML VIAL IV ONE (14:20)
[2017-11-12] MEDS ORDERED: LIDOCAINE 2% 5 ML VIAL ONE (14:20)
[2017-11-12] MEDS: ATORVASTATIN 40 MG TABLET PO SCH (21:48)
[2017-11-13] MEDS: SODIUM CHLORIDE 0.9% 1,000 ML IV SCH ×2 (01:49→05:04)
[2017-11-13] MEDS: FINASTERIDE 5 MG TABLET PO SCH (08:28)
[2017-11-13] MEDS: TAMSULOSIN 0.4 MG CAPSULE PO SCH (08:28)
[2017-11-13] MEDS: PANTOPRAZOLE 40 MG TABLET PO SCH ×2 (08:29→08:30)
[2017-11-13] MEDS: CETIRIZINE 10 MG TABLET PO SCH (08:29)
[2017-11-13] MEDS: FLUTICASONE 50 MCG NASAL SPRAY 16 GM BOTTLE BOTH NARES SCH (08:30)
[2017-11-13] MEDS: LISINOPRIL/HCTZ 10-12.5 MG TABLET PO SCH (08:30)
[2017-11-13 11:55] VITALS: BP 121/74
== END 2017-11-13 11:55 | disposition home or self-care (01) ==
LOC: N.ED 22:15 → N.EDINP 11-11 06:36 → SUATTDRO 11-11 06:36 → INTOOBSV 11-11 06:36 → N.5E 11-11 09:36
PROVIDERS: ADMIT Family Medicine; ATTEND Hospitalist

== ENCOUNTER 2018-04-08 18:38 | Observation (INO) ==
[2018-04-08 18:58] LABS: Basophils % 0.6 % (0.0-0.8); Eosinophils # 0.1 10*3/uL (0.0-0.87); Hematocrit 41.3 VOL% (42.0-52.0); Hemoglobin 14.1 GM/DL (14.0-18.0); Immature Granulocytes % 0.3 %; Immature Granulocytes Absolute 0.02 #; Lymphocytes # 2.1 10*3/uL (1.4-4.0); Lymphocytes % 32.7 % (21.2-54.2); Mean Corpuscular HGB Conc 34.1 GM/DL (32-36); Mean Corpuscular Hemoglobin 29 PG (27-34); Mean Corpuscular Volume 85.3 FL (87-102); Monocytes # 0.4 10*3/uL (0.11-0.8); Monocytes % 5.8 % (1.7-12.7); Neutrophils # 3.7 10*3/uL (1.4-7.4); Neutrophils % 59.6 % (38.7-73.9); Platelet Count 167 T/CUMM (130-400); Red Blood Count 4.84 MC/CUMM (3.8-5.5); Red Cell Distribution Width 14.4 % (9.3-17.3); White Blood Count 6.3 T/CUMM (4-12)
[2018-04-08 19:09] LABS: PT Patient Result 10.7 SECS; Partial Thromboplastin Time 24.8 SECS (0-40)
[2018-04-08 19:24] LABS: Alanine Aminotransferase 32 U/L (16-61); Albumin 4.1 G/DL (3.4-5.0); Alkaline Phosphatase 43 U/L (45-117); Aspartate Amino Transferase 28 U/L (0-37); Blood Urea Nitrogen 12 MG/DL (7-18); Calcium 9.4 MG/DL (8.5-10.1); Glucose 129 MG/DL (74-106); Osmolality,Calculated 278.5 MOS/KG (273-304); Potassium 3.4 MMOL/L (3.5-5.1); Sodium 139 MMOL/L (136-145); Total Protein 7.9 G/DL (6.4-8.3)
[2018-04-08 19:52] LABS: Apearance,Urine CLEAR (Clear); Bilirubin,Urine Negative (Negative); Blood, Urine Negative (Negative); Glucose,Urine (UA) Negative (Negative); Ketones,Urine Negative (Negative); Mucus,Urine Occasional /LPF (Occasional); Nitrite,Urine Negative (Negative); Protein,Urine Negative; RBC,Urine <1 /HPF (0-4); Urine Color Yellow (Yellow); Urine Specific Gravity 1.018 (1.001-1.035); Urine Urobilinogen < 2.0 EU/DL (0.2-1.0); WBC,Urine 1 /HPF (0-6)
[2018-04-08 19:54] LABS: Barbiturates Screen,Urine Negative (Negative); Benzodiazepines Screen,Urine Negative (Negative); Cannabinoid Screen,Urine Negative (Negative); Opiate Screen,Urine Positive (Negative); Phencyclidine Screen,Urine Negative (Negative)
[2018-04-08] MEDS ORDERED: ONDANSETRON 4 MG/2 ML VIAL IV PRN (20:32)
[2018-04-08] MEDS ORDERED: ACETAMINOPHEN 325 MG TABLET PO PRN (20:32)
[2018-04-08] MEDS ORDERED: CETIRIZINE 10 MG TABLET PO PRN (20:37)
[2018-04-08] MEDS ORDERED: ENOXAPARIN 40 MG/0.4 ML SYRINGE SUBCUT SCH (21:00)
[2018-04-08] MEDS ORDERED: ATORVASTATIN 40 MG TABLET PO SCH (21:00)
[2018-04-08] MEDS: TAMSULOSIN 0.4 MG CAPSULE PO SCH (22:03)
[2018-04-09 07:55] LABS: Albumin 3.6 G/DL (3.4-5.0); Calcium 9.3 MG/DL (8.5-10.1); Osmolality,Calculated 275.5 MOS/KG (273-304); Potassium 3.4 MMOL/L (3.5-5.1)
[2018-04-09] MEDS ORDERED: POTASSIUM CHLORIDE 20 MEQ TABLET PO ONE (07:57)
[2018-04-09] MEDS ORDERED: FLUTICASONE 50 MCG NASAL SPRAY 16 GM BOTTLE BOTH NARES SCH (09:00)
[2018-04-09] MEDS ORDERED: ASPIRIN EC 325 MG TABLET PO SCH (09:00)
[2018-04-09] MEDS ORDERED: LISINOPRIL/HCTZ 10-12.5 MG TABLET PO SCH (09:00)
[2018-04-09] MEDS ORDERED: DOCUSATE SODIUM 100 MG CAPSULE PO SCH (09:00)
[2018-04-09] MEDS ORDERED: FINASTERIDE 5 MG TABLET PO SCH (09:00)
[2018-04-09] MEDS ORDERED: PANTOPRAZOLE 40 MG TABLET PO SCH (09:00)
[2018-04-09] MEDS: TAMSULOSIN 0.4 MG CAPSULE PO SCH (09:30)
[2018-04-09 11:37] VITALS: BP 103/66
== END 2018-04-09 16:36 | disposition home or self-care (01) ==
LOC: N.ED 18:38 → N.EDINP 18:38 → N.2E 21:26
PROVIDERS: ADMIT Family Medicine; ATTEND Family Medicine